=== PATIENT | female | born 1980 | race Caucasian/White ===

== ENCOUNTER 2016-10-16 22:06 | Inpatient (IN) | payer BC, OTHER ==
[~2016-10-16] VITALS: Ht 162.6 cm; Wt 87.6 kg
[2016-10-16] MEDS ORDERED: OXYTOCIN 30 UNITS/500ML NSS IV ONE (22:23)
[2016-10-16] MEDS ORDERED: PRENTAB26 PO (22:59)
[2016-10-16 23:04] VITALS: Ht 162.6 cm; Wt 87.6 kg
[2016-10-16] MEDS ORDERED: ACETAMINOPHEN/CODEINE 300/30MG TAB PO PRN ×2 (23:15)
[2016-10-16] MEDS ORDERED: BENZOCAINE 20% AER SPR 82.5 GM CAN EXT PRN (23:15)
[2016-10-16] MEDS ORDERED: OXYTOCIN INJ 10 UNITS/ML VIAL IM ONE (23:15)
[2016-10-16] MEDS ORDERED: LANOLIN OINT EXT PRN ×2 (23:15)
[2016-10-16] MEDS ORDERED: SUPERCREAM 0.870 % 15GM JAR EXT PRN (23:15)
[2016-10-16] MEDS ORDERED: DIPHTHERIA/TETANUS/PERTUSSIS 0.5 ML SYR/VIAL IM. ONE (23:15)
[2016-10-16] MEDS ORDERED: OXYTOCIN 30 UNITS/500ML NSS IV PRN (23:15)
[2016-10-16] MEDS ORDERED: ACETAMINOPHEN 325 MG TAB PO PRN (23:15)
[2016-10-16] MEDS ORDERED: HYDROCORTISONE ACETATE 25 MG SUPP PR PRN (23:15)
--- NOTE | 2016-10-16 23:15 | Vaginal Delivery Summary ---
Vaginal Delivery Summary Patient is a 36-year-old 1 para 0 at 35-4/7 weeks estimated gestational age with an EDC of 11/16/2016 who presented to labor and delivery in active labor and was 10 cm. She had significant urge to push and began her second stage. She reported irregular contractions that resulted in spontaneous rupture of membranes at approximately 9:15 this evening with clear fluid. Subsequently she had rapid development of regular contractions. By the time I reached her by phone, the patient's crabber answered the phone and the patient was screaming in the background. course was uncomplicated. The patient is Rh+. She is rubella immune. Her GBS status is unknown. Past medical history: migraines. Past surgical history: None Allergies none Medications vitamins and vitamin D Social history: No tobacco alcohol or street drug use Family history: No congenital anomalies or mental retardation Review of systems per history of present illness Physical exam: Stable vital signs. Vinton not applied. heart tones category 1. Delivery summary: Patient pushed to deliver a viable male infant Apgars 8 and 9 via . The patient's and pushing stage was uncontrolled. The cephalic was delivered and the mouth and nares were suctioned. The shoulders and body were delivered with ease. The was vigorous and crying at . The cord was clamped at 30 seconds of life. The was then placed on the maternal abdomen and the cord was doubly clamped. The cord was cut. The placenta was delivered spontaneously and intact, 3VC. An IV site that had been obtained was lost and although some dilute Pitocin was obtained and additional dose of IM Pitocin was given. The patient's laceration was assessed and notably was a partial third degree. There was significant bleeding from the vaginal tissues. 1% local lidocaine injection was used for anesthesia. With 2-0 and 3-0 Vicryl suture material the laceration was repaired in multiple layers. The anal capsule was reinforced. The vaginal bleeding site was stitched with interrupted [id number] sutures. The tissue was very easily torn with stiches. The remainder of the laceration was repaired in the usual fashion. Cervix and sulci were intact. EBL 600cc. Mother and baby stable in recovery. Patient was offered IV analgesia multiple times and refused. She was counseled about the events of delivery and her repair. Assessment: 35-4/7 weeks delivery. Unknown GBS status. Plan: The patient has now been admitted. Given the amount of bleeding will obtain a CBC now and compare to a hemoglobin in the morning. She has other routine orders written. We'll watch her uterine bleeding and only reestablish an IV if needed. I did obtain a group B strep culture and that was sent to the lab.
[2016-10-16] MEDS: IBUPROFEN 600 MG TAB PO PRN (23:20)
[2016-10-16 23:35] LABS: HEMATOCRIT 30.9 % (37-47); MEAN CELL VOLUME 88.8 fL (80-100); MEAN CORPUSCULAR HEMOGLOBIN 30.5 pg (25-34); MEAN CORPUSCULAR HGB CONC 34.3 g/dl (32-36); MEAN PLATELET VOLUME 10.9 fL (7.4-10.4); PLATELET COUNT 189 K/uL (130-400); RED BLOOD COUNT 3.48 M/uL (4.2-5.4); WHITE BLOOD COUNT 12.77 K/uL (4.8-10.8)
[2016-10-17 04:45] VITALS: BP 125/58; PULSE 89
[2016-10-17] MEDS: IBUPROFEN 600 MG TAB PO PRN ×3 (06:11→23:19)
--- NOTE | 2016-10-17 06:43 | OB/GYN Progress Note ---
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 Subjective conversation w/ patient, physical exam, chart review Ambulation: limited ambulation Voiding: no voiding problems Diet Tolerance: Regular Diet Lochia: Moderate Feeding Type: Breast Feeding Pain: 3/10 Review of Systems Constitutional: No fever Respiratory: No shortness of breath Cardiac: No chest pain Abdomen: No nausea, No vomiting Female : No dysuria Objective Vital Signs Date Time Temp Pulse Resp B/P (MAP) Pulse Ox O2 Delivery O2 Flow Rate FiO2 10/17/16 04:45 89 18 125/58 (80) Room Air Physical Exam General Appearance: WELL-APPEARING Respiratory/Chest: lungs clear, normal breath sounds, no respiratory distress Cardiovascular: regular rate, rhythm Abdomen: normal bowel sounds, non tender, soft Fundus: Firm, Relation to Umbilicus (at umbilicus) Extremities: non-tender, no pedal edema Laboratory Results Last 24 Hours Test 10/16/16 23:19 10/17/16 06:08 White Blood Count 12.77 K/uL Red Blood Count 3.48 M/uL Hemoglobin 10.6 g/dL Hematocrit 30.9 % Mean Corpuscular Volume 88.8 fL Mean Corpuscular Hemoglobin 30.5 pg Mean Corpuscular Hemoglobin Concent 34.3 g/dl RDW Standard Deviation 42.3 fL RDW Coefficient of Variation 13.1 % Platelet Count 189 K/uL Mean Platelet Volume 10.9 fL Medications Current Inpatient Medications Medications (Trade) Dose Ordered Sig/Estefany Route Start Time Stop Time Status Last Admin Dose Admin Oxytocin (Pitocin IV) 30 units UD PRN IV 10/16/16 23:15 11/15/16 23:14 Benzocaine (Dermoplast Aero Spr) 1 appln PRN PRN EXT 10/16/16 23:15 11/15/16 23:14 10/17/16 04:36 1 APPLN Cocaine HCl (Supercream 0.870% Cr) BID PRN EXT 10/16/16 23:15 10/30/16 23:14 Hydrocortisone Acetate (Anusol Hc Supp) 25 mg BID PRN MD 10/16/16 23:15 11/15/16 23:14 Lanolin (Lanolin Oint) PRN PRN EXT 10/16/16 23:15 11/15/16 23:14 Ibuprofen (Motrin Tab) 600 mg Q4H PRN PO 10/16/16 23:15 11/15/16 23:14 10/17/16 06:11 600 MG Acetaminophen (Tylenol Tab) 650 mg Q6H PRN PO 10/16/16 23:15 11/15/16 23:14 Acetaminophen/ Codeine Phosphate (Tylenol w/ Codeine #3 Tab) 1 tab Q4H PRN PO 10/16/16 23:15 11/15/16 23:14 Acetaminophen/ Codeine Phosphate (Tylenol w/ Codeine #3 Tab) 2 tab Q4H PRN PO 10/16/16 23:15 11/15/16 23:14 10/16/16 23:20 2 TAB Docusate Sodium (coLACE CAP) 100 mg BID PO 10/17/16 08:00 11/16/16 07:59 Assessment and Plan Post- Day Number: 1 Continue Routine Care: A/P: This is a 36 y/o female, , PPD#1 s/p normal vaginal delivery. She is ambulating and clinically stable. Plan: - Vitals signs are reviewed and WNL - Last Hgb is 10.6 - Blood type O+, GBS unknown (culture pending), Rubella Immune - Routine care - Encourage ambulation, monitor and control pain with medication as needed, continue with regular diet as tolerated and monitor lochia - Stool softeners and sitz bath recommended - Encourage breast feeding and educate about breast feeding Resident Physician Supervision Note: I was present with Dr. Gillette during the history and exam. I discussed the case with the resident and agree with the findings and plan as documented in the note. Any exceptions or clarifications are listed here: doing well, bottom sore. aware of need for colace and likely iron. routine care. discussed PTD. Documented By: Cherrie Quiroz Resident Involvement: Resident Care Provided Care Provided: OB Delivery
[2016-10-17 06:58] LABS: HEMATOCRIT 27.6 % (37-47)
[2016-10-17 07:20] VITALS: BP 106/70; PULSE 78; TEMP 37
[2016-10-17] MEDS: DOCUSATE SODIUM 100 MG CAP PO SCH ×2 (10:01→20:00)
[2016-10-17 15:00] VITALS: BP 119/75; PULSE 91; TEMP 36.9
[2016-10-17 19:30] VITALS: BP 129/73; PULSE 116; TEMP 37.2
[2016-10-18 00:25] VITALS: BP 126/71; PULSE 100; TEMP 37.2; O2SAT 98
--- NOTE | 2016-10-18 06:37 | OB/GYN Progress Note ---
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 Subjective conversation w/ patient, physical exam, chart review Ambulation: ambulating normally Voiding: no voiding problems Diet Tolerance: Regular Diet Lochia: Small Feeding Type: Breast Feeding Pain: 2/10 controlled with motrin Review of Systems Constitutional: No fever Respiratory: No shortness of breath Cardiac: No chest pain Breast: No problem reported Abdomen: No nausea, No vomiting Female : No dysuria Objective Vital Signs Date Time Temp Pulse Resp B/P (MAP) Pulse Ox O2 Delivery O2 Flow Rate FiO2 10/18/16 00:25 Room Air 10/18/16 00:25 37.2 100 18 126/71 (89) 98 Room Air 10/17/16 19:30 37.2 116 20 129/73 (91) Room Air 10/17/16 19:30 Room Air 10/17/16 15:00 36.9 91 18 119/75 (90) Room Air 10/17/16 15:00 Room Air 10/17/16 07:20 Room Air 10/17/16 07:20 37.0 78 20 106/70 (82) Room Air Physical Exam General Appearance: WELL-APPEARING Respiratory/Chest: lungs clear, normal breath sounds, no respiratory distress Cardiovascular: regular rate, rhythm, no edema, no murmur Abdomen: normal bowel sounds, non tender, soft Fundus: Firm, Relation to Umbilicus (4 finger breaths below umbilicus) Extremities: normal inspection, no pedal edema, no calf tenderness Laboratory Results Last Resulted 10/16/16 23:19 10/17/16 06:08 Medications Current Inpatient Medications Medications (Trade) Dose Ordered Sig/Estefany Route Start Time Stop Time Status Last Admin Dose Admin Oxytocin (Pitocin IV) 30 units UD PRN IV 10/16/16 23:15 11/15/16 23:14 Benzocaine (Dermoplast Aero Spr) 1 appln PRN PRN EXT 10/16/16 23:15 11/15/16 23:14 10/17/16 04:36 1 APPLN Cocaine HCl (Supercream 0.870% Cr) BID PRN EXT 10/16/16 23:15 10/30/16 23:14 Hydrocortisone Acetate (Anusol Hc Supp) 25 mg BID PRN [place] 10/16/16 23:15 11/15/16 23:14 Lanolin (Lanolin Oint) PRN PRN EXT 10/16/16 23:15 11/15/16 23:14 Ibuprofen (Motrin Tab) 600 mg Q4H PRN PO 10/16/16 23:15 11/15/16 23:14 10/17/16 23:19 600 MG Acetaminophen (Tylenol Tab) 650 mg Q6H PRN PO 10/16/16 23:15 11/15/16 23:14 10/17/16 07:22 650 MG Acetaminophen/ Codeine Phosphate (Tylenol w/ Codeine #3 Tab) 1 tab Q4H PRN PO 10/16/16 23:15 11/15/16 23:14 Acetaminophen/ Codeine Phosphate (Tylenol w/ Codeine #3 Tab) 2 tab Q4H PRN PO 10/16/16 23:15 11/15/16 23:14 10/16/16 23:20 2 TAB Docusate Sodium (coLACE CAP) 100 mg BID PO 10/17/16 08:00 11/16/16 07:59 10/17/16 20:00 100 MG Assessment and Plan Post- Day Number: 2 Continue Routine Care: A/P: This is a 36 y/o female, s/p normal vaginal delivery. She is ambulating and clinically stable to discharge. - Vital signs are reviewed and WNL (Tmax 37.2) - Last Hgb 9.2 - Blood type O+, GBS neg, Rubella Immune - No signs of depression. - Routine care - Discussed resting, feeding, pain control, mastitis, control, follow up in 6 weeks and reasons to call sooner, if necessary. - Continue with pain medication as needed, and continue vitamins. - Encourage breast feeding and educate about breast feeding - Patient understands and keen for home. - Plan to discharge home Resident Physician Supervision Note: I interviewed and examined the patient. Discussed with Dr. Gillette and agree with findings and plan as documented in the note. Any exceptions or clarifications are listed here: Patient may need to move to nesting status. Instructions reviewed Documented By: Flaco Segal Resident Involvement: Resident Care Provided Care Provided: OB Delivery
--- NOTE | 2016-10-18 06:58 | Discharge Instructions ---
Discharge Instructions Date of Service Oct 18, 2016. Admission Reason for Admission: LABOR Discharge Discharge Diagnosis / Problem: after delivery Discharge Goals Goal(s): Routine recovery after delivery Medications Continue Dispensed Medications: supercream, dermaplast, tucks, lansinoh Activity Recommendations Activity Limitations: per Instructions/Follow-up section . Instructions / Follow-Up Instructions / Follow-Up ACTIVITY RECOMMENDATIONS: * Gradual return to full activity over the next 2-3 weeks. * No lifting - nothing heavier than baby over the next 2-3 weeks. * Do not engage in vigorous exercise, sexual activity or sports until cleared by your physician. * Do not drive or operate any motorized equipment until cleared by your physician. * You may shower/bathe daily. MEDICATIONS: For discomfort or pain, you may use Acetaminophen (Tylenol), Ibuprofen (Advil), or Naproxen (Aleve) following the package directions. For constipation you may use Colace following the package directions. BREAST CARE: If you are not breast feeding: * Wear a supportive bra 24 hours a day for one to two weeks. * Avoid stimulating your breasts and nipples as much as possible during the first few weeks after delivery. * When taking a shower, have the warm water hit your back, not breasts. * When your breasts feel full, apply ice packs. Usually three to four times a day helps ease the discomfort. * Take a mild pain medication (Tylenol / Motrin) when you are uncomfortable. If breast feeding: * Use breast milk to lubricate nipples. Lansinoh cream may be used for sore nipples. You do not need to remove cream prior to breast feeding. If using a different brand of cream, check the label for directions regarding removal of cream prior to nursing. * Wear a supportive bra. * If having problems with breasts or breast feeding, call a inside sales consultant or your health care provider. EPISIOTOMY CARE: After delivery, if you have an episiotomy (stitches), the following steps will ease discomfort and aid healing. * For the first 24 hours after delivery, place ice packs next to your episiotomy to help reduce swelling. * After the first 24 hour-period, sitz baths, either portable or in the tub, are suggested. A shower with a shower arm sprayed over the episiotomy may be comforting. * Priya care should be done after each voiding and bowel movement. Squirt warm water from a plastic bottle over the perineum (region of the body between the anus and urinary opening) and pat dry. * Use Dermoplast to ease discomfort. Shake container. [place] directly over the episiotomy. Place a Tucks on a clean sanitary pad next to your episiotomy. SPECIAL CARE INSTRUCTIONS: When you are discharged from the hospital, it is important for you to follow the instructions listed below: * During the first week at home, you should be able to care for yourself and your baby. In addition, the usual light household activities are encouraged. * Limit your activities to the way you feel. Do not try to clean the house or move furniture. Be sensible. * If you actively engage in sports and have done so up until the time of your delivery, you may resume these activities as soon as you feel able. This may take up to one month or even longer. Use good judgment. * Continue to take your vitamins for at least six weeks after the of your baby. * Your diet need not be limited unless you were on a special diet before your delivery. Breast-feeding mothers need around 2500 calories per day and at least 64-80 ounces of fluid per day (8 to 10 glasses). * You should eat foods from the four major food groups. Crash diets or fad diets are to be avoided. Eating lean meats, fresh fruits and vegetables, low-fat dairy products, high fiber foods and a regular exercise program, will help you get back to your pre- weight without putting your health at risk. * Constipation is sometimes a problem after delivery. Take a mild laxative as needed. If breast feeding, Milk of Magnesia is acceptable to use. You may use a suppository or Fleets enema if no episiotomy. * A daily shower or tub bath is suggested. Be sure to thoroughly and gently dry the perineum. * A bloody vaginal discharge will usually continue until around four weeks post . A small amount of bleeding may continue for as long as six weeks. Vaginal discharge changes from the bright red bleeding after delivery to pink then brownish and finally yellowish-pink before becoming white and disappearing. * Bleeding may increase with activity. Your first period may come in 4-8 weeks. If you are breast feeding, your period may be delayed even longer. * Tobias (sex) can begin whenever both you and your partner feel comfortable and do not have any form of genital infection. It is recommended that you wait at least six weeks for internal and external healing to occur. If you have questions, please talk to your health care practitioner. A condom should be used to prevent infection and . * Foreplay, gentle intercourse and lubrication is very important the first several times to prevent pain. A water-based lubricant such as K-Y jelly or Astroglide may be used. * If you have RH negative blood and your baby is RH positive, you will receive RHOGAM by injection prior to discharge. The nurse will give you a card to keep with you that has the date and place that you received RHOGAM after delivery. * During your care, you had a Rubella screen done to check for the presence of rubella antibodies in your blood. If your test was negative, you will receive a Rubella vaccine prior to discharge. This vaccine may cause a fever, soreness at the injection site and flu-like symptoms. If these symptoms persist, notify your health care practitioner. is not advised for one month after a Rubella vaccine. * Verbalizes understanding of car seat law as reviewed with patient nursing. * Car Seat hand-out given and reviewed with patient by nursing. * Shaken baby information reviewed with patient by nursing. Call you doctor if: * Heavy bleeding (saturating several pads an hour) or passing clots the size of your fist. * A fever >101 degrees F (38.3 degrees C) on two occasions four hours apart and /or chills. * Unusual pain in the pelvic or vaginal areas. * "Baby Blues" lasting longer than two weeks. If you have any questions or concerns, call your health care practitioner at . FOLLOW UP VISIT: * Please call the office at to schedule a 6 week examination. It is important you keep this appointment. It is important for you to make arrangements for either yearly or twice yearly check-ups thereafter. Current Hospital Diet Patient's current hospital diet: Regular OB Diet Discharge Diet Recommended Diet: Regular Diet Pending Studies Studies pending at discharge: no Medical Emergencies . Who to Call and When: Medical Emergencies: If at any time you feel your situation is an emergency, please call [phone] immediately. . Non-Emergent Contact Non-Emergency issues call your: Toll Transmission Worker . . "Provider Documentation" section prepared by Seth Gillette. . VTE Core Measure Inpt VTE Proph given/why not?: Treatment not indicated
[2016-10-18 07:17] VITALS: BP 116/71; PULSE 84; TEMP 36.9; O2SAT 97
[2016-10-18] MEDS: DOCUSATE SODIUM 100 MG CAP PO SCH ×2 (07:37→20:43)
[2016-10-18 17:00] VITALS: BP 119/66; PULSE 102; TEMP 37.2
[2016-10-18 17:30] VITALS: BP_DIAS 66; PULSE 102; TEMP 37.2
[2016-10-18] MEDS: IBUPROFEN 600 MG TAB PO PRN (18:46)
== END 2016-10-18 20:50 | disposition home or self-care (01) | DRG 775 ==
LOC: C.LD 22:06 → C.OBG 10-17 04:46
PROVIDERS: ADMIT Obstetrics & Gynecology; ATTEND Obstetrics & Gynecology
PROC: 0DQR0ZZ Repair Anal Sphincter, Open Approach (ICD-10-PCS; principal; 2016-10-16)
PROC: 0KQM0ZZ Repair Perineum Muscle, Open Approach (ICD-10-PCS; principal; 2016-10-16)
PROC: 10E0XZZ Delivery of Products of Conception, External Approach (ICD-10-PCS; principal; 2016-10-16)
DX: O60.14X0 Preterm labor third trimester with preterm delivery third trimester, not applicable or unspecified (principal); O70.20 Third degree perineal laceration during delivery, unspecified; Z3A.35 35 weeks gestation of pregnancy; Z37.0 Single live birth

== ENCOUNTER → 2017-04-23 | Outpatient (CLI) | payer OTHER ==
[~2017-04-23] MED LIST: PRENTAB26 PO
== END | disposition home or self-care (01) ==
LOC: C.PATHSPEC 13:53
PROVIDERS: ATTEND Obstetrics & Gynecology
DX: L92.9 Granulomatous disorder of the skin and subcutaneous tissue, unspecified (principal)

== ENCOUNTER 2020-01-27 14:43 | Inpatient (IN) ==
[2020-01-27] MEDS ORDERED: OXYTOCIN 30 UNITS/500 ML BAG IV PRN ×2 (14:58→20:26)
[2020-01-27 15:20] LABS: Mean Corpuscular Hemoglobin 29.9 pg (25-34); Mean Corpuscular Volume 89.6 fL (80-100); Platelet Count 196 K/uL (130-400); RDW Coefficient of Variation 13.5 % (11.5-14.5); RDW Standard Deviation 44.2 fL (36.4-46.3); Red Blood Count 4.02 M/uL (4.2-5.4); White Blood Count 14.71 K/uL (4.8-10.8)
[2020-01-27] MEDS: LACTATED RINGER'S 1,000 ML IV PRN ×2 (15:22→16:19)
[2020-01-27] MEDS ORDERED: SODIUM CHLORIDE 0.9% INJ 10 ML VIAL ONE (15:24)
[2020-01-27] MEDS ORDERED: ePHEDrine sulfate 50 MG/ML AMP ONE (15:24)
[2020-01-27] MEDS ORDERED: BUPIVACAINE 0.25% 30 ML VIAL ONE (15:24)
[2020-01-27] MEDS ORDERED: fentaNYL citrate 100 MCG/2 ML VIAL ONE (15:25)
[2020-01-27] MEDS ORDERED: fentaNYL 2MCG/ML ROPIVACAINE 1.25MG/ML 100 ML BAG EPI ONE (15:25)
[2020-01-27] MEDS ORDERED: ePHEDrine sulfate 50 MG/ML AMP IV PRN (15:29)
[2020-01-27] MEDS ORDERED: ONDANSETRON INJ 2 MG/ML 2 ML VIAL IV PRN (15:29)
[2020-01-27] MEDS ORDERED: NALOXONE HCL 0.4 MG/1 ML VIAL/CARP IV PRN (15:29)
[2020-01-27] MEDS ORDERED: fentaNYL 2MCG/ML ROPIVACAINE 1.25MG/ML 100 ML BAG EPI PRN (15:29)
[2020-01-27] MEDS ORDERED: PROMETHAZINE HCL 25 MG in SODIUM CHLORIDE 0.9% 50 ML IV PRN (15:29)
[2020-01-27] MEDS ORDERED: NALOXONE HCL 1 MG in SODIUM CHLORIDE 0.9% 1000ML 1,000 ML IV PRN (15:29)
[2020-01-27] MEDS ORDERED: diphenhydrAMINE 50 MG/ML VIAL IV PRN (15:29)
--- NOTE | 2020-01-27 15:29 | Anesthesiology Consultation ---
Date of Service January 27, 2020 Assessment & Plan ASA ASA2 Proposed Anesthesia Anesthesia Type: Labor Epidural Risk / Benefits Reviewed With: PT / POA / Parent / Guardian, Accepts Plan and Informed Consent Obtained History Height/Weight Height: 5 ft 4 in Weight: 97.069 kg Allergies Allergy/AdvReac Type Severity Reaction Status Date / Time No Known Allergies Allergy Verified 01/27/20 09:43 Medications Home Medications Medication Instructions Recorded Confirmed Last Taken PNV cmb#95-ferrous fumarate-FA 1 tab PO DAILY 12/23/18 01/27/20 01/26/20 20:00 [] Active Medications Generic Name Dose Route Start Last Admin Trade Name Freq PRN Reason Stop Dose Admin Lactated Ringer's 1,000 mls @ 125 mls/hr 01/27/20 14:58 01/27/20 15:22 Lr IV 01/29/20 14:57 999 mls/hr .Q8H PRN Administration L&D Protocol Protocol Past Medical History Medical History (Updated 01/26/20 @ 21:28 by Andie Nicole, RN) Advanced maternal age (AMA) in Encounter for anatomic survey History of chicken pox History of delivery, currently Hx of migraines No chronic diseases present labor in third trimester Previous labor affecting , antepartum 35 week delivery, PROM Supervision of elderly multigravida Supervision of normal intrauterine in multigravida Exercise / Class Metabolic Activity II 4-5 Yardwork/Stairs/Walk up hill Past Family History Family History Grandfather (Maternal) Heart disease Grandfather (Paternal) Heart disease Grandmother (Paternal) Heart disease Past Surgical History Surgical History No significant past surgical history S/P dilatation and curettage D&E 2018 Past Anesthesia History No Hx of Anesthesia Complications and No Family Hx of Anesthesia Complications History of PONV No Hx of PONV and No Hx of Motion Sickness Social History Smoking Status: Never smoker Hx Alcohol Use: No Hx Substance Use: No Review of Systems denies fever/cough/ colds/ chest pain/ SOB/ MAGAN denies MAGAN Physical Exam Vital Signs Last Vital Signs Temp 36.6 C 01/27/20 15:08 Pulse 105 H 01/27/20 15:55 Resp 20 01/27/20 15:08 BP 110/61 01/27/20 15:55 Pulse Ox 100 01/27/20 15:55 ENMT Mouth: no TMJ abnormality and no dentition abnormality Thyromental Distance: > or= 3.5 Finger Breadths Mallampati Class: II Neck neck extension not limited Respiratory normal respiratory effort; no respiratory distress Auscultation: lungs clear to auscultation bilaterally Cardiovascular Rate/Rhythm: regular rate and regular rhythm Neurologic moves all extremities Psychiatric Orientation: alert and oriented x 3 Testing Laboratory Results 01/27/20 15:09
[2020-01-27 15:47] LABS: Mean Corpuscular Hgb Conc 33.3 g/dL (32-36)
--- NOTE | 2020-01-27 17:06 | History & Physical Report ---
Date of Service January 27, 2020 Assessment & Plan Admission and Anticipated Discharge Date Admission Date: January 27, 2020 Multiparous female at 39 weeks in active labor prior delivery was at 35 weeks anticipate vaginal requesting epidural analgesia History of Present Illness Primary Care Provider: LUCIANA Rangel Patient is a 39 yo white female EDC 01/31 who presents at 39+ weeks in active labor. (-)SPROM, (-) bloody show. complicated by AMA and prior delivery at 35 weeks. she received Renée this . GBS neg, Blood type O positive. Allergies Allergy/AdvReac Type Severity Reaction Status Date / Time No Known Allergies Allergy Verified 01/27/20 09:43 Home Medications Home Medications Medication Instructions Recorded Confirmed Type PNV cmb#95-ferrous fumarate-FA 1 tab PO DAILY 12/23/18 01/27/20 History [] Patient History Medical History Advanced maternal age (AMA) in Encounter for anatomic survey History of chicken pox History of delivery, currently Hx of migraines No chronic diseases present labor in third trimester Previous labor affecting , antepartum 35 week delivery, PROM Supervision of elderly multigravida Supervision of normal intrauterine in multigravida Surgical History No significant past surgical history S/P dilatation and curettage D&E 2018 Family History Grandfather (Maternal) Heart disease Grandfather (Paternal) Heart disease Grandmother (Paternal) Heart disease Social History Smoking Status: Never smoker Hx Alcohol Use: No Hx Substance Use: No Preferred Language: Maori Communication Ability: Effective Beliefs That Will Affect Care: None marital status: marital status details: Jeff Chowdhury [phone] Current Living Situation: Family Current Living Situation Comment: and son current occupational status: employed current occupation: [employer] Feels Safe at Home: Yes Safety Concerns: Feels Safe At This Time Assistive Devices: None Review of Systems All systems reviewed & are unremarkable except as noted in HPI & below Physical Exam Constitutional: WD/WN, vitals as above Respiratory: normal respiratory effort, lungs clear to auscultation Cardiovascular: RRR, no murmur, no edema Gastrointestinal (Abdomen): normal bowel sounds, soft, nontender, no hepatosplenomegaly Psychiatric: A+Ox3, euthymic affect Genitourinary: OB Exam Abdomen: + vertex and + regular contractions (3-5 minutes and moderate) Manual OB Exam: + cervical dilation 7 cm, + cervical effacement 100%, + station -2 and + amniotic fluid (bulging membranes) OB Exam Monitor Tracing: + external FHT monitor used, + category II, + normal FHT variability and + early decelerations present Results & Data ([facility]) Vital Signs (Past 12 Hours) Vital Signs Temp Pulse Resp BP Pulse Ox 01/27/20 16:05 110 H 98 01/27/20 16:04 100 H 114/58 L 01/27/20 16:02 107 H 89/52 L 01/27/20 16:00 95 H 82/45 L 99 01/27/20 15:59 100 H 84/42 L 01/27/20 15:56 105 H 89/55 L 01/27/20 15:55 105 H 110/61 100 01/27/20 15:52 103 H 119/60 01/27/20 15:51 117 H 120/57 L 01/27/20 15:50 113 H 100 01/27/20 15:49 103 H 126/64 01/27/20 15:45 101 H 99 01/27/20 15:40 81 99 01/27/20 15:39 97 H 144/67 H 01/27/20 15:36 107 H 91 01/27/20 15:35 105 H 100 01/27/20 15:08 97.9 F 20 01/27/20 14:54 97.9 F 92 H 20 134/70 Coding Level of Care Code None
[2020-01-27] MEDS ORDERED: DIPHTHERIA/TETANUS/PERTUSSIS 0.5 ML SYR/VIAL IM ONE (20:26)
[2020-01-27] MEDS ORDERED: oxyCODONE/ACETAMINOPHEN 5mg/325mg TAB PO PRN (20:26)
[2020-01-27] MEDS ORDERED: bisacodyL 10 MG SUPP PR PRN (20:26)
[2020-01-27] MEDS ORDERED: SUPERCREAM 0.870% 15 GM JAR EXT PRN (20:26)
[2020-01-27] MEDS ORDERED: BENZOCAINE 20% AER SPR 82.5 GM CAN EXT PRN (20:26)
[2020-01-27] MEDS ORDERED: HYDROCORTISONE ACETATE 25 MG SUPP PR PRN (20:26)
[2020-01-27] MEDS ORDERED: ACETAMINOPHEN 325 MG TAB PO PRN (20:26)
--- NOTE | 2020-01-27 21:22 | Delivery Summary ---
Vaginal Delivery Summary Date of Service January 27, 2020 patient is a 39-year-old 3 para 1-0-1-1 white female who presented in active labor at 39+ weeks gestation. She received effective epidural anesthesia shortly after arrival in labor and delivery. She was 7 cm on admission. She progressed to full dilation, and membranes were then ruptured for clear fluid. She pushed effectively over intact perineum for delivery of a viable male . After the head was delivered there was a double nuchal cord. This needed to be clamped and cut prior to delivering the rest of the infant. The rest of the delivered easily and was placed on the mother's abdomen for further attention and drying. The was vigorous and moving all 4 limbs. The placenta was expressed intact with a three-vessel cord. A second-degree perineal laceration was repaired with 3-0 chromic in the usual fashion. bleeding was controlled with dilute Pitocin. Estimated blood loss was 300 cc. All counts were correct. Mother and were doing well after delivery[place] [facility] [place] Vaginal Delivery Codes: 61115 global code for the antepartum, delivery, and post-
--- NOTE | 2020-01-27 21:55 | Anesthesiology Progress Note ---
Date of Service January 27, 2020 Anesthesia Post Procedure Vital Signs Vital Signs: Temp Pulse Resp BP Pulse Ox 01/27/20 21:46 112 H 135/63 01/27/20 21:31 121 H 138/67 01/27/20 21:18 20 01/27/20 21:17 113 H 139/63 01/27/20 21:01 113 H 143/65 H 01/27/20 20:48 20 01/27/20 20:46 101 H 135/61 01/27/20 20:33 20 01/27/20 20:32 111 H 147/66 H 01/27/20 20:23 115 H 134/63 01/27/20 20:18 20 01/27/20 20:03 20 01/27/20 20:02 117 H 137/67 01/27/20 19:48 114 H 20 130/89 01/27/20 19:35 129 H 99 01/27/20 19:34 109 H 94 01/27/20 19:33 117 H 151/92 H 01/27/20 19:30 110 H 88 L 01/27/20 19:26 125 H 92 01/27/20 19:25 115 H 100 01/27/20 19:20 121 H 100 01/27/20 19:15 107 H 100 01/27/20 19:10 104 H 99 01/27/20 19:08 102 H 114/54 L 01/27/20 19:05 104 H 100 01/27/20 19:00 103 H 99 01/27/20 18:55 99 H 98 01/27/20 18:50 93 H 98 01/27/20 18:49 96 H 118/58 L 01/27/20 18:45 95 H 99 01/27/20 18:40 99 H 100 01/27/20 18:35 92 H 99 01/27/20 18:32 106 H 100/58 L 01/27/20 18:30 99 H 100 01/27/20 18:25 99 H 99 01/27/20 18:20 102 H 100 01/27/20 18:19 20 01/27/20 18:18 97 H 115/58 L 01/27/20 18:15 96 H 99 01/27/20 18:10 101 H 99 01/27/20 18:05 96 H 99 01/27/20 18:02 100 H 108/53 L 01/27/20 18:01 20 01/27/20 18:00 104 H 99 01/27/20 17:55 113 H 98 01/27/20 17:54 100 H 101/55 L 01/27/20 17:50 105 H 100 01/27/20 17:45 36.9 C 118 H 20 99 01/27/20 17:40 91 H 99 01/27/20 17:35 104 H 117/61 98 01/27/20 17:31 20 01/27/20 17:30 95 H 99 01/27/20 17:25 104 H 98 01/27/20 17:20 101 H 98 01/27/20 17:19 93 H 121/58 L 01/27/20 17:15 91 H 98 01/27/20 17:10 93 H 98 01/27/20 17:05 104 H 98 01/27/20 17:04 91 H 115/58 L 01/27/20 17:01 20 01/27/20 17:00 93 H 99 01/27/20 16:55 94 H 20 99 01/27/20 16:50 93 H 98 01/27/20 16:49 95 H 118/57 L 01/27/20 16:45 95 H 97 01/27/20 16:40 103 H 20 99 01/27/20 16:35 101 H 99 01/27/20 16:30 108 H 95/55 L 98 01/27/20 16:25 112 H 20 90/53 L 99 01/27/20 16:21 103 H 87/42 L 01/27/20 16:20 104 H 98 01/27/20 16:15 109 H 98 01/27/20 16:10 112 H 99/50 L 99 01/27/20 16:05 110 H 20 98 01/27/20 16:04 100 H 114/58 L 01/27/20 16:02 107 H 89/52 L 01/27/20 16:00 95 H 82/45 L 99 01/27/20 15:59 100 H 84/42 L 01/27/20 15:56 105 H 89/55 L 01/27/20 15:55 105 H 110/61 100 01/27/20 15:52 103 H 119/60 01/27/20 15:51 117 H 120/57 L 01/27/20 15:50 113 H 100 01/27/20 15:49 103 H 126/64 01/27/20 15:45 101 H 99 01/27/20 15:40 81 99 01/27/20 15:39 97 H 144/67 H 01/27/20 15:36 107 H 91 01/27/20 15:35 105 H 100 01/27/20 15:08 36.6 C 20 01/27/20 14:54 36.6 C 92 H 20 134/70 Pain Intensity Bilateral Abdomen: Pain Intensity: 0 Transfer of Care Handoff Completed per policy Notes Mental Status: alert / awake / arousable and participated in evaluation Patient Amnestic to Procedure: Yes Nausea / Vomiting: adequately controlled Pain: adequately controlled Airway Patency, RR, SpO2: stable & adequate BP & HR: stable & adequate Hydration State: stable & adequate Anesthetic Complications: no major complications apparent and Pt Satisfied with anesthetic care
[2020-01-27] MEDS: IBUPROFEN 600 MG TAB PO PRN (22:31)
[2020-01-28] MEDS: IBUPROFEN 600 MG TAB PO PRN ×4 (04:44→17:40)
[2020-01-28 06:44] LABS: Hematocrit (blood only) 29.5 % (37-47); Mean Corpuscular Hemoglobin 29.9 pg (25-34); Mean Corpuscular Hgb Conc 33.9 g/dL (32-36); Mean Corpuscular Volume 88.3 fL (80-100); Mean Platelet Volume 10.6 fL (7.4-10.4); Nucleated RBC # (auto) 0.04 K/uL (0-0); Nucleated RBC % (auto) 0.2 %; Platelet Count 179 K/uL (130-400); RDW Coefficient of Variation 13.5 % (11.5-14.5); RDW Standard Deviation 43.7 fL (36.4-46.3); Red Blood Count 3.34 M/uL (4.2-5.4); White Blood Count 18.27 K/uL (4.8-10.8)
--- NOTE | 2020-01-28 06:47 | Obstetrical Progress Note ---
Date of Service <Janell Kaye DO - Last Filed: 01/28/20 07:33> January 28, 2020 Assessment & Plan <Janell Roxanne Kaye DO - Last Filed: 01/28/20 07:33> (1) state: PPD #1 - PNL: Rh pos, RI, GBS neg, COVID neg - Feels well today. Eating well, voiding well, ambulating well. - Pain well controlled with ibuprofen 600mg Q4H PRN - Routine care -- OOB, ambulation, diet progression as tolerated - After discharge will have 6 week follow-up with Dr. Mills. Subjective <Janell Kaye DO - Last Filed: 01/28/20 07:33> Radha Loza is a 39 y/o female who is PPD #1 following spontaneous vaginal delivery at 39 and 3/7 weeks. She reports feeling well overall this morning. Mild abdominal cramping and 4/10 pain well managed on analgesics. Voiding without dysuria. Tolerating meals overnight without difficulty, nausea, or vomiting. Patient has been able to ambulate some. Not yet passing gas. Has persistent lochia with some improvement this morning. Currently . Review of Systems Denies fever or chills. Denies shortness of breath or cough. Denies chest pain. Denies breast pain. Denies dysuria. Denies leg pain or leg swelling. Denies headache or changes in vision. Physical Exam <Janell Kaye DO - Last Filed: 01/28/20 07:33> General: Alert, oriented. No acute distress. Cardiac: Regular rate and rhythm. No murmurs. Respiratory: Clear to auscultation bilaterally a/p, no wheezes/rales/rhonchi. No increased work of breathing. Symmetrical chest rise. No respiratory distress. Abdomen: Soft, nontender, nondistended. Bowel sounds present. Uterus: Uterine fundus firm, palpable 2 cm below umbilicus. Lower Extremities: No lower extremity edema or swelling. No deep calf pain. Roni's negative bilaterally. Results & Data ([facility]) <Janell Kaye DO - Last Filed: 01/28/20 07:33> Vital Signs (Past 12 Hours) Vital Signs Temp Pulse Pulse Resp BP BP Pulse Ox 01/28/20 04:30 37.0 C 100 H 18 121/70 01/28/20 00:00 36.9 C 108 H 18 123/71 01/27/20 22:20 36.7 C 120 H 18 128/79 98 01/27/20 22:01 120 H 125/58 L 01/27/20 21:48 36.9 C 20 01/27/20 21:46 112 H 135/63 01/27/20 21:31 121 H 138/67 01/27/20 21:18 20 01/27/20 21:17 113 H 139/63 01/27/20 21:01 113 H 143/65 H 01/27/20 20:48 20 01/27/20 20:46 101 H 135/61 01/27/20 20:33 20 01/27/20 20:32 111 H 147/66 H 01/27/20 20:23 115 H 134/63 01/27/20 20:18 20 01/27/20 20:03 20 01/27/20 20:02 117 H 137/67 01/27/20 19:48 114 H 20 130/89 01/27/20 19:35 129 H 99 01/27/20 19:34 109 H 94 01/27/20 19:33 117 H 151/92 H 01/27/20 19:30 110 H 88 L 01/27/20 19:26 125 H 92 01/27/20 19:25 115 H 100 01/27/20 19:20 121 H 100 01/27/20 19:15 107 H 100 01/27/20 19:10 104 H 99 01/27/20 19:08 102 H 114/54 L 01/27/20 19:05 104 H 100 01/27/20 19:00 103 H 99 01/27/20 18:55 99 H 98 01/27/20 18:50 93 H 98 01/27/20 18:49 96 H 118/58 L 01/27/20 18:45 95 H 99 Laboratory Results 01/28/20 01/27/20 Range/Units 06:27 15:09 WBC 18.27 H 14.71 H (4.8-10.8) K/uL RBC 3.34 L 4.02 L (4.2-5.4) M/uL Hgb 10.0 L 12.0 (12.0-16.0) g/dL Hct 29.5 L 36.0 L (37-47) % MCV 88.3 89.6 (80-100) fL MCH 29.9 29.9 (25-34) pg MCHC 33.9 33.3 (32-36) g/dL RDW Std Deviation 43.7 44.2 (36.4-46.3) fL RDW Coeff of Alfredo 13.5 13.5 (11.5-14.5) % Plt Count 179 196 (130-400) K/uL MPV 10.6 H 11.0 H (7.4-10.4) fL Absolute Nucleated RBC 0.04 H (0-0) K/uL Nucleated RBC % (auto) 0.2 % <Kassi Cerna MD, FACOG - Last Filed: 01/28/20 07:57> Co-Signing Physician Notes Resident Physician Supervision Note: I was present with Dr. Kaye during the history and exam. I discussed the case with the resident and agree with the findings and plan as documented in the note. Any exceptions or clarifications are listed here: [None] Documented By: Kassi Cerna MD, FACOG Resident Activity Tracking <Janell Kaye DO - Last Filed: 01/28/20 07:33> Resident Involvement: Resident Care Provided Care Provided: OB Delivery
[2020-01-28] MEDS: PRENATAL VITAMIN 1 TAB PO SCH (08:33)
[2020-01-28] MEDS: DOCUSATE SODIUM 100 MG CAP PO SCH ×2 (08:33→20:22)
[2020-01-28 09:59] VITALS: O2SAT 97
[2020-01-28] MEDS ORDERED: bisacodyL 5 MG TABEC PO SCH (20:00)
[2020-01-29] MEDS: IBUPROFEN 600 MG TAB PO PRN ×2 (05:36→09:36)
--- NOTE | 2020-01-29 06:17 | Obstetrical Progress Note ---
Date of Service <Janell Kaye DO - Last Filed: 01/29/20 06:47> January 29, 2020 Assessment & Plan <Janell Kaye DO - Last Filed: 01/29/20 06:47> (1) state: PPD #2 - PNL: Rh pos, RI, GBS neg, COVID neg - Feels well today. Eating well, voiding well, ambulating well. - Pain well controlled with ibuprofen 600mg Q4H PRN - Hgb 8.9 today (10.0 yesterday); plan for iron 325mg po daily upon d/c. - Routine care -- continue OOB, ambulation, and full diet as tolerated - After discharge will have 6 week follow-up with Dr. Mills. - Plan for d/c home today. Subjective <Janell Kaye DO - Last Filed: 01/29/20 06:47> Radha Loza is a 39 y/o female who is PPD #2 following spontaneous vaginal delivery at 39 and 3/7 weeks. She reports feeling well overall this morning. Mild abdominal cramping and 6/10 pain well managed on analgesics. Voiding without dysuria. Tolerating meals overnight without difficulty, nausea, or vomiting. Patient has been able to ambulate some. She is passing gas and has had a bowel movement. Has persistent lochia with some improvement this morning. Currently . Review of Systems Denies fever or chills. Denies shortness of breath or cough. Denies chest pain. Denies breast pain. Denies dysuria. Denies leg pain or leg swelling. Denies headache or changes in vision. Physical Exam <Janell Kaye DO - Last Filed: 01/29/20 06:47> General: Alert, oriented. No acute distress. Cardiac: Regular rate and rhythm. No murmurs. Respiratory: Clear to auscultation bilaterally a/p, no wheezes/rales/rhonchi. No increased work of breathing. Symmetrical chest rise. No respiratory distress. Abdomen: Soft, nontender, nondistended. Bowel sounds present. Uterus: Uterine fundus firm, palpable 2 cm below umbilicus. Lower Extremities: No lower extremity edema or swelling. No deep calf pain. Roni's negative bilaterally. Results & Data ([facility]) <Janell Kaye DO - Last Filed: 01/29/20 06:47> Vital Signs (Past 12 Hours) Vital Signs Temp Pulse Resp BP Pulse Ox 01/28/20 23:30 36.6 C 96 H 20 122/74 97 01/28/20 20:10 36.7 C 99 H 18 110/69 Laboratory Results 01/29/20 Range/Units 05:58 Hgb 8.9 L (12.0-16.0) g/dL Hct 27.8 L (37-47) % <Flaco Segal Jr, MD, FACOG - Last Filed: 01/29/20 07:00> Co-Signing Physician Notes Resident Physician Supervision Note: I was present with Dr. Kaye during the history and exam. I discussed the case with the resident and agree with the findings and plan as documented in the note. Any exceptions or clarifications are listed here: DOing well, desires d/c. D/C instructions given, f/u in 6 weeks Documented By: Flaco Segal Jr, MD, FACOG
[2020-01-29 06:37] LABS: Hematocrit (blood only) 27.8 % (37-47); Hemoglobin 8.9 g/dL (12.0-16.0)
[2020-01-29 08:32] VITALS: BP 127/77; PULSE 91; TEMP 98.2
[2020-01-29] MEDS: DOCUSATE SODIUM 100 MG CAP PO SCH (08:37)
[2020-01-29] MEDS: PRENATAL VITAMIN 1 TAB PO SCH (08:37)
== END 2020-01-29 11:58 | disposition home or self-care (01) | DRG 807 ==
LOC: OPB 14:43 → 4S1 14:44 → 4S2 22:45